=== PATIENT | female | born 1980 | race African-American/Black ===

== ENCOUNTER 2017-04-16 16:59 | Emergency (ER) | payer SELFPAY ==
[~2017-04-16] VITALS: Ht 154.9 cm; Wt 67.0 kg
[2017-04-16 17:13] VITALS: BP 124/65
== END 2017-04-17 06:15 | disposition left against medical advice (07) ==
LOC: ER 04-17 06:04
DX: Z04.8 Encounter for examination and observation for other specified reasons (principal); F12.90 Cannabis use, unspecified, uncomplicated; R53.1 Weakness; F41.9 Anxiety disorder, unspecified; Z53.21 Procedure and treatment not carried out due to patient leaving prior to being seen by health care provider
CPT/HCPCS: 93005